=== PATIENT | male | born 1955 | race African-American/Black ===

== ENCOUNTER 2017-02-27 01:01 | Emergency (ER) | payer MEDICAID, OTHER ==
[~2017-02-27] VITALS: Ht 185.4 cm; Wt 86.2 kg
[2017-02-27 01:11] VITALS: BP 146/87
[2017-02-27] MEDS ORDERED: HYDROcodone-ACET 10/325MG TAB PO ONE (02:00)
[2017-02-27] MEDS ORDERED: MORPHINE SULF 30 mg ER tab PO ONE (02:15)
[2017-02-27] MEDS ORDERED: MORPHINE SULFATE 10 MG/5 ML ORAL SOLN PO ONE (02:15)
== END 2017-02-27 02:46 | disposition home or self-care (01) ==
LOC: ER 01:01 → EDBD 01:01 → ER 02:20
DX: G89.29 Other chronic pain (principal); M54.9 Dorsalgia, unspecified